=== PATIENT | male | born 1930 | race African-American/Black ===

== ENCOUNTER → 2016-12-29 | Outpatient (CLI) | payer MEDICARE, BC ==
[~2016-12-29] MED LIST: ADVIL200 M2 PO; ALDOMET250 MG PO; ALLEGRA ALLERG180 MG PO; AMLODIPINE BESYL5 MG PO; ASPERDRINK81 MG PO; ASPIRIN PO; ASPIRIN81 M1 PO; ASPIRIN81 M2 PO; ATIVAN PO; ATIVAN0.5 M1 PO; ATIVAN0.5 MG PO; BETAMETHASONE V15 GM TOP; CENTRUM SILVER1 EACH; CIPRO PO; CLINDAMYCIN HC300 MG PO; CLOPIDOGREL75 MG PO; COLACE PO; CYANOCOBAL1000 MCG/M IM; DARVOCET-N 1001 TAB PO; DESYREL50 MG PO; DEXILANT60 MG PO; DIAZEPAM PO; DIOVAN PO; DIOVAN160 MG DOB; DIOVAN160 MG PO; DITROPAN PO; FEROSUL325 ( 651 PO; FLEXERIL PO; FLOMAX0.4 MG PO; FLONASE 0.05% N16 G1; FOLIC ACID1 MG PO; HCTZ PO; HYDROCHLOROTHIA25 MG PO; HYDROCODON-ACE1 EACH PO; HYDROGESIC 5/501 CAP PO; IMDUR PO; ISOSORBIDE DINI30 MG PO; ISOSORBIDE PO; LABETALOL HCL200 MG PO; LIPITOR PO; LIPITOR20 MG PO; LIPITOR40 MG PO; LISINOPRIL PO; LISINOPRIL20 MG PO; LORAZEPAM1 MG PO; METHYLDOPA PO; METHYLDOPA250 M1 PO; METHYLDOPA500 MG PO; NAMZARIC 28 MG1 EACH PO; NISOLDIPINE20 MG PO; NITROGYLCERIN SUBLINGUAL; NORMODYNE PO; NORMODYNE100 M1 PO; NORVASC PO; OXYCODONE W-APA1 CAP PO; PERCOCET7.5 PO; PLAVIX PO; PREDNISONE PO; PRILOSEC PO; PRILOSEC20 MG PO; PRINIVIL20 M1 PO; PROTONIX PO; RANEXA500 MG PO; SULAR PO; SULAR17 MG PO; SULAR20 MG PO; TRAMADOL HCL50 M1 PO; TRANDATE200 MG PO; ULTRAM PO; VICODIN 5/500 T1 TAB PO; VICODIN PO; VITAMIN B-1000 MCG/1 INJ; VITAMIN B6200 MG PO
--- NOTE | ~2016-12-29 | XA51 ---
[facility] A Service of [facility] & [facility] RADIOLOGY TEXT RESULTS PATIENT: YUMIKO BABCOCK LOCATION: [facility] : 32 UNIT #: [id number] AGE: [address]: Tia Buckner MD SEX: M ORDER DR: [id number] [facility] [address] [place], [place] [address] [id number] O MR#: [id number] Acc #: [id number] NAME: YUMIKO BABCOCK : 1930 SEX: M STUDY DATE/TIME: 12/29/2016 11:05 UNIT: [facility] ROOM: STUDY DESCRIPTION: XA BX Bone Marrow Attending Physician: Tia Buckner M.D. Ordering Physician: Tia Buckner M.D. Primary Care Physician: Mingo Sow Jr., M.D. MEDICAL IMAGING REPORT This report is preliminary unless electronic signature is present EXAM XA BX bone marrow HISTORY Pancytopenia. FINDINGS Please see CT GUIDE report for combined text results. Dictated by... Mary Beth Castellanos M.D. THIS IS AN ELECTRONICALLY VERIFIED REPORT Mary Beth Castellanos M.D. at 01/02/2017 9:23 AM AFF/psc TD: 12/31/2016 20:32 JOB #: [id number] MEDICAL IMAGING REPORT COPY
--- NOTE | ~2016-12-29 | CT134 ---
[facility] A Service of [facility] & [facility] RADIOLOGY TEXT RESULTS PATIENT: YUMIKO BABCOCK LOCATION: [facility] : 34 UNIT #: [id number] AGE: [address]: Tia Buckner MD SEX: M ORDER DR: [id number] [facility] [address] [place], [place] [address] [id number] O MR#: [id number] Acc #: [id number] NAME: YUMIKO BABCOCK : 1930 SEX: M STUDY DATE/TIME: 12/29/2016 11:05 UNIT: [facility] ROOM: STUDY DESCRIPTION: CT Guide Attending Physician: Tia Buckner M.D. Ordering Physician: Tia Buckner M.D. Primary Care Physician: Mingo Sow Jr., M.D. MEDICAL IMAGING REPORT This report is preliminary unless electronic signature is present EXAM CT-guided bone marrow biopsy INDICATIONS Pancytopenia. PROCEDURE This CT exam was performed with one or more of the following radiation dose reduction techniques: Automatic exposure control, adjustment of mA and/or kV according to patient size, and iterative reconstruction. The risks, benefits, and alternatives to the procedure were explained to the patient, and signed, informed consent was obtained. He was placed prone on the CT scanner gantry and preliminary CT scan was performed through the region of interest. An appropriate site overlying the patient's left iliac bone was selected. The overlying skin was marked. Patient was prepped and draped in usual sterile fashion. Time-out was performed as per protocol. Skin and subcutaneous tissues were anesthetized with buffered lidocaine and a bone marrow biopsy needle was advanced into the left iliac bone. Repeat CT scan confirmed appropriate trajectory of the needle and the needle was advanced into the left iliac bone and bone marrow aspirate was obtained. The needle was advanced further into the left iliac bone and then removed, which yielded an adequate core sample. Patient did receive conscious sedation consisting of 1.5 mg of Versed and 50 mcg fentanyl, and continuous monitoring was provided throughout the procedure. IMPRESSION Technically successful CT-guided bone marrow biopsy as noted above. CT was used during the procedure and permanent images were saved. [facility] A Service of [facility] & [facility] RADIOLOGY TEXT RESULTS PATIENT: YUMIKO BABCOCK LOCATION: [facility] #: [id number] : 34 UNIT #: [id number] AGE: [address]: Tia Buckner MD SEX: M ORDER DR: Dictated by... Mary Beth Castellanos M.D. THIS IS AN ELECTRONICALLY VERIFIED REPORT Mary Beth Castellanos M.D. at 01/02/2017 9:18 AM AFF/psc TD: 12/31/2016 20:25 JOB #: [id number] MEDICAL IMAGING REPORT COPY
[2016-12-29 08:39] LABS: HEMATOCRIT 37.8 % (38.0-50.0); HEMOGLOBIN 12.6 gm/dL (13.0-16.0); MEAN CORPUSCULAR HEMOGLOBIN 30.6 PG (28-34); MEAN CORPUSCULAR HGB CONC 33.2 g/dL (30-36); MEAN PLATELET VOLUME 8.5 FL (6.5-11.5); RED BLOOD COUNT 4.11 X10e (3.90-5.60); RED CELL DISTRIBUTION WIDTH 16.6 % (11.0-15.5); WHITE BLOOD COUNT 4.4 X10e3 (4.0-10.5)
[2016-12-29 08:46] LABS: INR 1.2; PARTIAL THROMBOPLASTIN TIME 26.8 SECONDS (23.5-31.3); PROTHROMBIN TIME (PATIENT) 12.5 SECONDS (9.6-11.5)
== END | disposition home or self-care (01) ==
LOC: CIVR 07:57
PROVIDERS: Internal Medicine Hematology
DX: D61.818 Other pancytopenia (principal); D50.9 Iron deficiency anemia, unspecified; D69.6 Thrombocytopenia, unspecified; I10 Essential (primary) hypertension; I25.10 Atherosclerotic heart disease of native coronary artery without angina pectoris; I25.2 Old myocardial infarction; Z86.73 Personal history of transient ischemic attack (TIA), and cerebral infarction without residual deficits; Z79.82 Long term (current) use of aspirin; Z79.02 Long term (current) use of antithrombotics/antiplatelets; Z88.0 Allergy status to penicillin; Z88.6 Allergy status to analgesic agent; Z88.1 Allergy status to other antibiotic agents; Z91.040 Latex allergy status; Z87.891 Personal history of nicotine dependence
CPT/HCPCS: 38221; G0364; 36415; 77012; 85027; 85610; 85730; 88184; 88185; 88237; 88264; 88305; 88311; 88313; 88323; 88341; 88342; 99144; 99152; 99153; J2250; J3010